=== PATIENT | female | born 1990 | race Caucasian/White ===

== ENCOUNTER 2021-02-01 04:15 | Inpatient (IN) | payer OTHER ==
[2021-02-01] MEDS ORDERED: ELECTROLYTE-148 SOLN 1,000 ML IV SCH ×2 (05:00→06:15)
[2021-02-01] MEDS ORDERED: CLINDAMYCIN 900 MG PREMIX IVPB 900 MG/50 ML BAG IVPB ONE ×3 (05:30→20:27)
[2021-02-01 06:09] LABS: POTASSIUM 3.9 mmol/L (3.5-5.1)
[2021-02-01 06:10] LABS: CALCIUM 9.4 mg/dL (8.5-10.1); INR 0.94 (0.83-1.09); PROTHROMBIN TIME (PATIENT) 11.6 SEC (9.7-13.0)
[2021-02-01 06:11] LABS: BLOOD UREA NITROGEN 5.4 mg/dL (7-18)
[2021-02-01 06:13] LABS: ACTIVATED PTT 26.5 SECONDS (25.2-36.5)
[2021-02-01 06:14] VITALS: BMI 26.2
[2021-02-01 06:14] LABS: CREATININE 0.5 mg/dL (0.55-1.3)
[2021-02-01] MEDS ORDERED: BUTORPHANOL TARTRATE 1 MG/ML VIAL IVPB ONE (06:29)
[2021-02-01] MEDS ORDERED: VANCOMYCIN 1 GM in D5W (PRE-DOCKED) 1,000 MG/250 ML IVPB ONE (06:30)
[2021-02-01 06:35] LABS: BASO % 0.3 % (0-2.0); EOS % 1.6 % (0-4.5); HEMATOCRIT 32.8 % (32.4-45.2); HEMOGLOBIN 11.4 GM/dL (10.7-15.3); LYMPH % 22.9 % (8-40); MCH 32.5 pg (25.7-33.7); MCHC 34.8 g/dl (32.0-36.0); MEAN CELL VOLUME 93.5 fl (80-96); MEAN PLT VOLUME 10.9 fl (7.5-11.1); MONO % 7.9 % (3.8-10.2); NEUT % 67.3 % (42.8-82.8); PLATELET COUNT 176 K/MM3 (134-434); RBC 3.51 M/mm3 (3.60-5.2); RDW 13.9 % (11.6-15.6); WHITE BLOOD COUNT 9.5 K/mm3 (4.0-10.0)
[2021-02-01] MEDS ORDERED: BUTORPHANOL TARTRATE 2 MG/ML VIAL ONE (06:35)
[2021-02-01] MEDS ORDERED: OXYTOCIN 30 UNITS in 0.9% NS 30 UNIT/500 ML INFUS.BAG IVPB SCH (10:00)
[2021-02-01] MEDS ORDERED: OXYTOCIN 30 UNITS in 0.9% NS 30 UNIT/500 ML INFUS.BAG IVPB ONE (11:28)
[2021-02-01] MEDS: CLINDAMYCIN 600MG PREMIX IVPB 600 MG/50 ML BAG IVPB SCH ×2 (12:23→20:30)
[2021-02-01] MEDS ORDERED: FENTANYL/BUPIVACAINE/NS/PF - PCEA - 50 ML DISP.SYRIN EP ONE ×2 (14:57→18:54)
[2021-02-01] MEDS ORDERED: BUPIVACAINE HCL/PF 0.25% (2.5MG/ML) 10 ML VIAL ONE (15:05)
[2021-02-01] MEDS ORDERED: PCA PUMP NR ONE (15:08)
[2021-02-01] MEDS ORDERED: NALOXONE HCL 0.4 MG/ML VIAL IVPUSH PRN (15:43)
[2021-02-01] MEDS ORDERED: FENTANYL/BUPIVACAINE/NS/PF - PCEA - 50 ML DISP.SYRIN EP SCH (15:45)
[2021-02-01] MEDS ORDERED: AMPICILLIN SODIUM 1 GM VIAL ONE (16:09)
[2021-02-01] MEDS: AMPICILLIN - 1 GM in SODIUM CHLORIDE 100 ML IVPB SCH (16:33)
[2021-02-01] MEDS ORDERED: AZITHROMYCIN IVPB 500 MG/250 ML BAG IVPB ONE (19:46)
[2021-02-01] MEDS ORDERED: CITRIC ACID/SODIUM CITRATE 30 ML UNIT-DOSE CUP PO ONE (19:47)
[2021-02-01] MEDS ORDERED: CLINDAMYCIN PHOSPHATE 600 MG/4 ML VIAL ONE ×2 (20:24→20:28)
[2021-02-01] MEDS ORDERED: LIDO 2%/EPI 1:200000 PRESRVFRE (20 ML SDVIAL) ONE ×2 (20:35→21:07)
[2021-02-01] MEDS ORDERED: ceFAZolin SODIUM 1 GM VIAL ONE (20:46)
[2021-02-01] MEDS ORDERED: OXYTOCIN 10 UNITS/ML VIAL ONE (20:57)
[2021-02-01] MEDS: OXYTOCIN 20 UNITS in 0.9% NS 20 UNIT/1,000 ML INFUS.BAG IV SCH (21:30)
[2021-02-01] MEDS ORDERED: OXYTOCIN 20 UNITS in 0.9% NS 20 UNIT/1,000 ML INFUS.BAG IV ONE (22:47)
[2021-02-01] MEDS ORDERED: oxyCODONE HCL 5 MG TABLET ONE (23:21)
[2021-02-01] MEDS: oxyCODONE HCL 5 MG TABLET PO PRN (23:24)
[2021-02-02] MEDS: ACETAMINOPHEN 325 MG TABLET (FP) PO PRN ×2 (05:09→10:40)
[2021-02-02] MEDS: AMPICILLIN - 1 GM in SODIUM CHLORIDE 100 ML IVPB SCH (05:19)
[2021-02-02 06:33] LABS: BASO % 0.2 % (0-2.0); EOS % 0.3 % (0-4.5); HEMATOCRIT 26.5 % (32.4-45.2); HEMOGLOBIN 9.2 GM/dL (10.7-15.3); LYMPH % 9.1 % (8-40); MCH 32.3 pg (25.7-33.7); MCHC 34.7 g/dl (32.0-36.0); MEAN PLT VOLUME 10.7 fl (7.5-11.1); MONO % 6.7 % (3.8-10.2); NEUT % 83.7 % (42.8-82.8); PLATELET COUNT 153 K/MM3 (134-434); RBC 2.85 M/mm3 (3.60-5.2); RDW 13.7 % (11.6-15.6); WHITE BLOOD COUNT 13.6 K/mm3 (4.0-10.0)
[2021-02-02] MEDS: SIMETHICONE 80 MG TAB.CHEW (FP) PO PRN ×3 (10:40→22:30)
[2021-02-02] MEDS: oxyCODONE HCL 5 MG TABLET PO PRN ×3 (13:32→22:30)
[2021-02-02] MEDS ORDERED: BISACODYL 10 MG SUPP.RECT RC PRN (21:23)
[2021-02-03] MEDS: oxyCODONE HCL 5 MG TABLET PO PRN ×4 (03:00→22:46)
[2021-02-03] MEDS: ACETAMINOPHEN 325 MG TABLET (FP) PO PRN ×4 (03:00→22:49)
[2021-02-03] MEDS: OXYTOCIN 20 UNITS in 0.9% NS 20 UNIT/1,000 ML INFUS.BAG IV SCH (04:39)
[2021-02-03] MEDS: SIMETHICONE 80 MG TAB.CHEW (FP) PO PRN ×2 (07:49→13:34)
[2021-02-04] MEDS: oxyCODONE HCL 5 MG TABLET PO PRN ×2 (06:02→16:46)
[2021-02-04] MEDS: ACETAMINOPHEN 325 MG TABLET (FP) PO PRN ×2 (07:19→16:47)
[2021-02-04 08:50] LABS: BASO % 0.3 % (0-2.0); EOS % 3.8 % (0-4.5); HEMATOCRIT 24.8 % (32.4-45.2); HEMOGLOBIN 8.8 GM/dL (10.7-15.3); LYMPH % 20.7 % (8-40); MCH 33.1 pg (25.7-33.7); MCHC 35.5 g/dl (32.0-36.0); MEAN CELL VOLUME 93.1 fl (80-96); MONO % 9.8 % (3.8-10.2); NEUT % 65.4 % (42.8-82.8); PLATELET COUNT 186 K/MM3 (134-434); RBC 2.66 M/mm3 (3.60-5.2); RDW 13.5 % (11.6-15.6); WHITE BLOOD COUNT 8.7 K/mm3 (4.0-10.0)
[2021-02-04] MEDS: SIMETHICONE 80 MG TAB.CHEW (FP) PO PRN (16:46)
[2021-02-05] MEDS: ACETAMINOPHEN 325 MG TABLET (FP) PO PRN ×3 (02:00→11:51)
[2021-02-05] MEDS: SIMETHICONE 80 MG TAB.CHEW (FP) PO PRN ×3 (02:00→11:51)
[2021-02-05 09:40] VITALS: BP 97/64; PULSE 55; TEMP 98
== END 2021-02-05 15:00 | disposition home or self-care (01) | DRG 540 ==
LOC: JDEL 04:15 → JERBED 04:45 → JLDR 05:27 → J3W 23:40
PROVIDERS: ADMIT Obstetrics & Gynecology; ATTEND Obstetrics & Gynecology
PROC: 10D00Z1 Extraction of Products of Conception, Low, Open Approach (ICD-10-PCS; principal; 2021-02-01)
DX: O61.0 Failed medical induction of labor (principal); O42.02 Full-term premature rupture of membranes, onset of labor within 24 hours of rupture; O48.0 Post-term pregnancy; O99.824 Streptococcus B carrier state complicating childbirth; Z3A.40 40 weeks gestation of pregnancy; Z37.0 Single live birth; O90.81 Anemia of the puerperium; D64.9 Anemia, unspecified
CPT/HCPCS: 36415; 80048; 85025; 85610; 85730; 86593; 86780; 86850; 86900; 86901; C9803; U0003; U0005